=== PATIENT | male | born 1980 | race Caucasian/White ===

== ENCOUNTER 2016-07-11 05:42 | Day surgery (SDC) | payer OTHER ==
[~2016-07-11] VITALS: Ht 177.8 cm; Wt 93.0 kg
--- NOTE | ~2016-07-11 | OP ---
PATIENT NAME: GILBERT ANAND MEDICAL RECORD: [id number] :80 LOCATION:D[facility] ADMISSION DATE: SURGEON: GILBERT MYRICK MD DATE OF OPERATION: 07/11/2016 Orthopedic Surgery Operative Note PREOPERATIVE DIAGNOSIS: Right shoulder impingement with acromioclavicular arthritis. POSTOPERATIVE DIAGNOSIS: Right shoulder impingement with acromioclavicular arthritis. PROCEDURES: Right shoulder arthroscopy with subacromial decompression and distal clavicle excision. SURGEON: Gilbert Myrick MD. ANESTHESIA: General. INTRAOPERATIVE COMPLICATIONS: None. SUMMARY OF PATHOLOGIC FINDINGS: The patient had severe acromioclavicular arthritis, as well as a downward sloping of acromion. OPERATIVE SUMMARY IN DETAIL: After obtaining the appropriate preoperative orthopedic surgery consent as well as anesthetic consultation, evaluation and clearance, the patient was placed on the operating table in supine position. After general laryngeal mask airway was administered, the patient was placed in a left lateral decubitus position. All pressure points were well-padded to include down leg peroneal, as well as axillary roll. The patient was held firmly to the operating table using the vacuum pack suction system. Right upper extremity and shoulder were prepped and draped in routine sterile fashion. The arm was held in the Arthrex traction boom at 30 degrees of forward flexion, 30 degrees of abduction with 10 pounds of traction laterally. Arthroscopy was established in the glenohumeral joint from a posterior portal. Diagnostic arthroscopy showed the patient to have relatively minimal findings in the glenohumeral joint. Attention was turned to the subacromial space. While on the subacromial space, accessory lateral portal was created through which [place] tissue ablation system was utilized to denude the undersurface of the acromion of all soft tissue elements. A 5-0 barrel bur was used for acromioplasty at the level of the acromioclavicular joint. Then, through a separate anterior arthroscopic portal under direct arthroscopic visualization, the distal clavicle was excised using the 5-0 barrel carlos. Having completed this, residual of the bursa was taken down anteriorly, laterally, posteriorly and superiorly. Having completed this, arthroscopy portals were closed in routine interrupted fashion using 4-0 Prolene, sterile dressings were applied. The patient was awakened, taken to recovery room in stable condition. All final needle and sponge counts were correct. TRANSINT:[id number] Voice Confirmation ID: [id number] DOCUMENT ID: [id number] OPERATIVE REPORT [id number] GILBERT ANAND MD, GILBERT CONCEPCION CC: [id number] DICTATION DATE: 08/05/16 1359 REEL CUTTER: 08/05/16 1718 [facility] 07/11/16 [place] [id number] [place] [id number]
[~2016-07-11 05:42] MED LIST: ALEVE220 MG PO
[2016-07-11 07:15] VITALS: BP 123/76; Ht 177.8 cm; Wt 93.0 kg
--- NOTE | 2016-07-11 09:51 | NUR ---
PATIENT HAVING TROUBLE WITH VISION. COULD NOT SEE HAND 2 INCHES FROM HIS FACE. ANESTHESIA NOTIFIED. VISION SLOWLY RECOVERING BY PACU DISCHARGE, CAN SEE BLURRY OUTLINES. ANESTHESIA STATED WILL MONITOR IN OUTPATIENT.
--- NOTE | 2016-07-11 14:09 | NUR ---
1000 TO ROOM WITH SIGHT FUZZIES DUE TO BLOCK IN SHOULDER RIGHT PUPIL 2 LEFT 4 , 1130 SIGHT BETTER PER PATIENT , DR BROWN IN ROOM 1230 I SIGHT MUCH BETTER PER PT DR BROWN HERE 1300 PUPIL LEFT4 RIGHT 3 1315 IV DC WITH CATHER TIP INTACT
== END 2016-07-11 12:45 | disposition home or self-care (01) ==
LOC: D.OPS 05:42 → D.PAN 08:30 → D.OPS 10:45 → D.PAN 10:45 → D.OPS 12:45
DX: M75.41 Impingement syndrome of right shoulder (principal); M19.011 Primary osteoarthritis, right shoulder; Z01.812 Encounter for preprocedural laboratory examination

== ENCOUNTER → 2016-08-12 12:45 | Outpatient (CLI) | payer OTHER ==
[2016-07-11 07:15] VITALS: BMI 29.4
== END | disposition home or self-care (01) ==
LOC: D.MRI 12:45
DX: M75.41 Impingement syndrome of right shoulder (principal)

== ENCOUNTER 2016-09-12 09:00 | Day surgery (SDC) | payer OTHER ==
[~2016-09-12] VITALS: Ht 177.8 cm; Wt 95.3 kg
[~2016-09-12 09:00] MED LIST changes: +HYDROCODONE-APA1 TAB PO; +SOMA350 MG PO
[2016-09-12 10:33] VITALS: BP 129/80; Ht 177.8 cm; Wt 95.3 kg
[2016-09-12] MEDS ORDERED: PERCOCET 10/3251 TA1 PO (12:20)
--- NOTE | 2016-09-12 16:16 | NUR ---
1420 DISCHARGE INSTRUCTIONS COMPLETE. PRESCRIPTION FOR PERCOCET GIVEN. HE HAS NO QUESTIONS OR CONCERNS AT THIS TIME. ESCORTED OUT BY VOLUNTEER.
== END 2016-09-12 14:20 | disposition home or self-care (01) ==
LOC: D.OPS 09:00 → D.PAN 11:30 → D.OPS 11:35 → D.PAN 11:55 → D.OPS 12:40 → D.PAN 13:15 → D.OPS 13:15
DX: M75.41 Impingement syndrome of right shoulder (principal); Z01.810 Encounter for preprocedural cardiovascular examination; Z01.811 Encounter for preprocedural respiratory examination; Z01.812 Encounter for preprocedural laboratory examination

== ENCOUNTER → 2017-01-13 12:38 | Outpatient (CLI) | payer OTHER ==
[2016-09-12 10:33] VITALS: BMI 30.1
[~2017-01-13 12:38] MED LIST changes: +PERCOCET 10/3251 TA1 PO
== END | disposition home or self-care (01) ==
LOC: D.RAD 12:38
DX: M54.5 Low back pain (principal)

== ENCOUNTER → 2017-06-13 10:30 | Outpatient (CLI) | payer OTHER ==
[2016-09-12 10:33] VITALS: BMI 30.1
== END | disposition home or self-care (01) ==
LOC: D.MRI 10:30
DX: M50.223 Other cervical disc displacement at C6-C7 level (principal)

== ENCOUNTER → 2017-10-14 14:28 | Outpatient (CLI) | payer OTHER ==
[2016-09-12 10:33] VITALS: BMI 30.1
== END | disposition home or self-care (01) ==
LOC: D.MRI 10-10 15:00
DX: M47.897 Other spondylosis, lumbosacral region (principal); M47.26 Other spondylosis with radiculopathy, lumbar region